=== PATIENT | male | born 1990 | race Two or more races ===

== ENCOUNTER 2023-08-17 18:10 | Emergency (ER) | payer OTHER ==
[~2023-08-17] VITALS: Ht 175.3 cm; Wt 74.8 kg
[2023-08-17] MEDS ORDERED: ONDANSETRON HCL/PF 4 MG/2 ML VIAL ONE (19:10)
[2023-08-17] MEDS ORDERED: PANTOPRAZOLE 40 MG VIAL ONE (19:10)
[2023-08-17] MEDS ORDERED: MORPHINE SULFATE INJ 4 MG/ML DISP.SYRIN ONE (19:11)
[2023-08-17] MEDS ORDERED: IOHEXOL-300 100 ML VIAL IV ONE (19:12)
[2023-08-17] MEDS ORDERED: IV NS 0.9% 250 ML IV ONE (19:12)
[2023-08-17 19:16] LABS: BASOPHILS % (AUTO) 0.4 % (0.0-2.0); EOSINOPHILS # (AUTO) 0.5 K/uL (0.0-0.7); EOSINOPHILS % (AUTO) 4.2 % (0.0-6.0); HEMATOCRIT 41 % (39-51); HEMOGLOBIN 13.1 g/dL (13.5-17.5); LYMPHOCYTES # (AUTO) 2.6 K/uL (0.8-4.8); LYMPHOCYTES % (AUTO) 22.5 % (20.0-44.0); MEAN CORPUSCULAR HEMOGLOBIN 28 PG (26.0-33.0); MEAN CORPUSCULAR HGB CONC 32 g/dl (31.0-36.0); MEAN CORPUSCULAR VOLUME 86 fL (80-96); MONOCYTES # (AUTO) 1.1 K/uL (0.1-1.30); MONOCYTES % (AUTO) 9.3 % (2.0-12.0); NEUTROPHILS # (AUTO) 7.4 K/uL (1.8-8.9); NEUTROPHILS % (AUTO) 63.6 % (43.0-81.0); PLATELET COUNT (AUTO) 448 K/uL (150-450); RED BLOOD CELL COUNT(AUTO) 4.73 MIL/uL (4.5-6.0); RED CELL DISTRIBUTION WIDTH 13.4 % (11.5-15.0); WHITE BLOOD COUNT (AUTO) 11.7 K/uL (4.3-11.0)
[2023-08-17] MEDS: PANTOPRAZOLE 40 MG VIAL IV ONE (19:18)
[2023-08-17] MEDS: IV NS 0.9% 1,000 ML BAG IV ONE (19:18)
[2023-08-17] MEDS: MORPHINE SULFATE INJ 2 MG/ML DISP.SYRIN IV ONE (19:18)
[2023-08-17] MEDS: ONDANSETRON HCL/PF 4 MG/2 ML VIAL IVP ONE (19:18)
[2023-08-17 19:34] LABS: ALBUMIN 3.2 g/dL (3.4-5.0); BILIRUBIN,DIRECT 0.1 mg/dL (0.0-0.2); BILIRUBIN,TOTAL 0.3 mg/dL (0.2-1.0); CALCIUM, SERUM 8.8 mg/dL (8.5-10.1); CREATININE 1.2 mg/dL (0.6-1.3); POTASSIUM 3.7 mmol/L (3.5-5.1); TOTAL PROTEIN, SERUM 7.7 g/dL (6.4-8.2)
[2023-08-17 19:55] LABS: APPEARANCE,URINE Clear (CLEAR); BILIRUBIN,URINE Negative (NEGATIVE); BLOOD, URINE Trace-intact Ery/uL (NEGATIVE); COLOR,URINE YELLOW (YELLOW); KETONES,URINE Trace mg/dL (NEGATIVE); LEUKOCYTE ESTERASE ,URINE Negative (NEGATIVE); NITRITE, URINE Negative (NEGATIVE); PH,URINE 5.5 (5.0-8.0); PROTEIN,URINE Negative (NEGATIVE); UGLUCOSE Negative (NEGATIVE); UROBILINOGEN,URINE 0.2 EU/dL (0.2)
[2023-08-17 20:03] LABS: ADD URINE CULTURE NO; BACTERIA,URINE None seen /HPF (None Seen); SQUAMOUS EPITHELIAL CELL,UR None Seen /HPF (None Seen); WBC,URINE NONE SEEN /HPF (0-3)
[2023-08-17] MEDS ORDERED: PRED50TA PO (20:21)
[2023-08-17] MEDS: methylPREDNISolone SOD SUCC 125 MG/2ML VIAL IV ONE (20:25)
[2023-08-17] MEDS ORDERED: methylPREDNISolone SOD SUCC 125 MG/2ML VIAL ONE (20:25)
[2023-08-17 20:54] VITALS: BP 122/65; TEMP 98; O2SAT 98
== END 2023-08-17 20:55 | disposition home or self-care (01) ==
LOC: ER 18:25
DX: K52.9 Noninfective gastroenteritis and colitis, unspecified (principal)
CPT/HCPCS: 99285; 74177; 96374; 96375; 71045; 96361; 93005; 85025; 80048; 83690; 80076; 81001; 36415; J2270; J2930; J2405; J7030; J7050; C9113; Q9967

== ENCOUNTER 2023-09-21 09:48 | Emergency (ER) | payer OTHER ==
[~2023-09-21] VITALS: Ht 175.3 cm; Wt 74.8 kg
[~2023-09-21 09:48] MED LIST: PRED50TA PO
[2023-09-21 09:49] VITALS: BP 109/77; TEMP 98.2; O2SAT 99
[2023-09-21] MEDS ORDERED: CARI350T PO (10:59)
== END 2023-09-21 11:10 | disposition home or self-care (01) ==
LOC: ER 09:52
DX: S13.4XXA Sprain of ligaments of cervical spine, initial encounter (principal); S29.8XXA Other specified injuries of thorax, initial encounter; V89.2XXA Person injured in unspecified motor-vehicle accident, traffic, initial encounter; Y93.89 Activity, other specified; Y92.89 Other specified places as the place of occurrence of the external cause; Y99.8 Other external cause status
CPT/HCPCS: 71100-TC; 72040-TC